=== PATIENT | female | born 1960 | race African-American/Black ===

== ENCOUNTER 2017-01-05 14:07 | Outpatient (CLI) | payer OTHER ==
--- NOTE | 2017-01-06 09:49 | Mammography Report ---
BONE DENSITY STUDY: DEFINITIONS: BMD = Bone Mineral Density T-score = BMD related to mean peak bone mass of young adult (mean expressed in Standard Deviation) Z-score = Age matched BMD expressed in SD World Health Organization (WHO) Diagnostic Criteria Normal T-score > -1 SD Osteopenia T-score between -1 and -2.4 SD Osteoporosis T-score -2.5 SD or below FINDINGS: The weighted average BMD of lumbar spine L1-L4 is 0.63 with a T-score of -3.9. The weighted average BMD of hip is 0.678 with a T-score of -2.2. IMPRESSION: The patient's T-score is diagnostic for osteoporosis and high relative risk for fracture. NOTE: BMD is not the only risk factor for fracture; also consider factors such as the patient's age, risk of falling, previous osteoporotic fracture, family history of osteoporotic fractures, current smoker, and low body weight. Herrera's triangle is a region of interest in femur, predominantly of trabecular bone. It is not a true anatomic site, and [facility] does not recommend its use clinically.
--- NOTE | 2017-01-08 11:17 | Mammography Report ---
Bilateral mammogram and bilateral breast ultrasound: Patient presents with a palpable, painful lump in her right breast. A marker is placed over the area of concern in the superior breast. Routine views were obtained demonstrating a generally dense fibroglandular pattern in a symmetric distribution. In the area of the marker that are seen in the lateral projection there is a partially circumscribed density measuring approximately 2.4 cm. No other focal finding is noted and when compared to her prior examination in August 2012 the overall breast pattern is essentially unchanged although the focal finding on the right is not noted. Bilateral whole breast ultrasound is performed. In the right breast at 12:00 there is a cluster of echolucent masses the largest measuring approximately 20 mm. Other circumscribed echolucent masses are also noted in the 9:00 location. In the subareolar region at 6:00 there is a circumscribed mass however it contains numerous small echoes. It measures approximately 9 mm and has no internal flow. In the left breast there also echolucent circumscribed masses in the 12:00, 1:00, 2:30, 6, and 9:00 locations. No dominant mass is at 9:00 in the retroareolar region measuring 15 mm. CAD used. Impression: 1. The palpable right breast finding corresponds to a cluster of benign appearing cysts. 2. Generally stable breast pattern. 3. Indeterminate but most likely benign subareolar mass on ultrasound. Recommendation: 1. The palpable mass can be aspirated under ultrasound if desired. 2. Ultrasound-guided aspiration or 6 month repeat ultrasound reevaluation of left retroareolar mass. The findings and followup considerations discussed with the patient. 3. Annual mammogram followup. BI-RADS CATEGORY: 3 = Probably benign ACR BI-RADS MAMMOGRAPHIC CODES: 0 = Needs additional imaging evaluation; 1 = Negative; 2 = Benign; 3 = Probably benign; 4 = Suspicious; 5 = Malignant; 6 = Known biopsy-proven malignancy COMMENT: 1. Dense breast tissue, i.e., adenosis, fibrocystic changes, etc., may obscure an underlying neoplasm. 2. Approximately 10% of cancers are not detected with mammography. 3. A negative mammography report should not delay biopsy if a clinically suspicious mass is present.
== END 2017-01-05 14:08 | disposition home or self-care (01) ==
LOC: MAMMO 14:07
PROVIDERS: ATTEND Obstetrics & Gynecology
DX: M81.0 Age-related osteoporosis without current pathological fracture (principal); N63.10 Unspecified lump in the right breast, unspecified quadrant; N95.1 Menopausal and female climacteric states
CPT/HCPCS: 76641; 77080; G0204; 77066

== ENCOUNTER 2017-07-15 08:24 | Outpatient (CLI) | payer OTHER ==
--- NOTE | 2017-07-21 12:51 | Magnetic Resonance Report ---
BILATERAL BREAST MRI WITHOUT AND WITH CONTRAST: 07/15/17 08:24:00 CLINICAL: Mastalgia and fibrocystic change. COMPARISON:01/05/17 bilateral mammogram. TECHNIQUE: Axial 1.0-mm T1 without, axial high resolution 2.0-mm T2 and axial 1.0-mm dynamic Vibrant high-resolution postcontrast T1 fat saturation sequences on a 1.5 Evita magnet. The examination was performed with an 8 channel dedicated [employer]in[employer] breast coil. Post processing with CAD and subtraction was performed on an Amanda Huff DBA [employer] workstation. 15.0 cc of Multihance was injected without incident for the contrast portion of the exam. Consent was obtained prior to the administration of the contrast. FINDINGS: Right: Mild background parenchymal enhancement. No suspicious mass or enhancement. A benign retroareolar intraparenchymal lymph node is located 4.6 cm from the nipple and measures 9.6 x 5.7 x 5.3 mm. It has central fat on T2. A smooth oval upper inner mass located 10.0 cm from the nipple measures 11.3 x 7.2 x 5.8 mm. It demonstrates mild enhancement with 100% type I persistent enhancement. Multiple scattered benign cysts. The largest measures 3 cm and is located at 3 o'clock. No suspicious right axillary or right internal mammary lymph nodes. Left: Mild background parenchymal enhancement. No suspicious mass or enhancement. Several scattered benign cysts. The largest is located in the upper outer quadrant and measures 1.9 x 1.4 x 1.3 cm. It has mild peripheral enhancement at its margin. No suspicious left axillary or left internal mammary lymph nodes. IMPRESSION: 1. Negative study with no suspicious finding in either breast. 2. Bilateral benign cysts. 3. A right upper inner 1.1 cm mass has benign features and is probably a benign fibroadenoma. BI-RADS 2 -- Benign
== END 2017-07-15 08:25 | disposition home or self-care (01) ==
LOC: SPVIMAG 08:24
PROVIDERS: ATTEND Obstetrics & Gynecology
DX: N60.02 Solitary cyst of left breast (principal); N60.01 Solitary cyst of right breast; E78.00 Pure hypercholesterolemia, unspecified; K21.9 Gastro-esophageal reflux disease without esophagitis
CPT/HCPCS: A9577; C8908; 77059

== ENCOUNTER 2017-09-15 15:07 | Outpatient (CLI) | payer OTHER | END 2017-09-15 15:08 | disposition home or self-care (01) | LOC: LABHHL 15:07 | PROVIDERS: ATTEND Specialist | DX: N60.12 Diffuse cystic mastopathy of left breast (principal); F32.9 Major depressive disorder, single episode, unspecified; E78.00 Pure hypercholesterolemia, unspecified; Z88.6 Allergy status to analgesic agent; Z88.1 Allergy status to other antibiotic agents; Z88.8 Allergy status to other drugs, medicaments and biological substances; Z88.2 Allergy status to sulfonamides; Z90.710 Acquired absence of both cervix and uterus | CPT/HCPCS: 88112 ==

== ENCOUNTER 2017-09-22 15:21 | Outpatient (CLI) | payer OTHER | END 2017-09-22 15:22 | disposition home or self-care (01) | LOC: LABHHL 15:21 | PROVIDERS: ATTEND Specialist | DX: N60.01 Solitary cyst of right breast (principal); F32.9 Major depressive disorder, single episode, unspecified; E78.00 Pure hypercholesterolemia, unspecified; Z90.710 Acquired absence of both cervix and uterus; Z88.1 Allergy status to other antibiotic agents; Z88.6 Allergy status to analgesic agent; Z88.8 Allergy status to other drugs, medicaments and biological substances | CPT/HCPCS: 88112 ==

== ENCOUNTER 2017-11-04 13:52 | Outpatient (CLI) | payer OTHER ==
[2017-11-04 15:09] LABS: Basophils % (Auto) 0.5 % (0.0-1.8); Eosinophils # (Auto) 0.1 K/mm3 (0.0-0.4); Eosinophils % (Auto) 1.3 % (0.0-4.3); Hematocrit 44.1 % (30.3-42.9); Hemoglobin 14.5 gm/dl (10.1-14.3); Lymphocytes % (Auto) 33.9 % (13.4-35.0); Mean Corpuscular HGB Conc 33 % (30-34); Mean Corpuscular Hemoglobin 27 pg (28-32); Mean Corpuscular Volume 81 fl (79-97); Monocytes # (Auto) 0.4 K/mm3 (0.0-0.8); Monocytes % (Auto) 6.5 % (0.0-7.3); Platelet Count 361 K/mm3 (140-440); Red Blood Count 5.41 M/mm3 (3.65-5.03); Red Cell Distribution Width 13.8 % (13.2-15.2)
[2017-11-04 15:19] LABS: INR 0.94 (0.87-1.13)
[2017-11-04 15:20] LABS: Partial Thromboplastin Time 31.7 Sec. (24.2-36.6)
--- NOTE | 2017-11-04 16:00 | Short Stay Summary ---
Short Stay Documentation Date of service: 11/04/17 - History Principal diagnosis: neck pain, radiculopathy H&P: obtained from office - Allergies and Medications Current Medications: Allergies acetaminophen [From Percocet] Allergy (Verified 05/22/13 23:44) HALLUCINATIONS celecoxib [From Celebrex] Allergy (Verified 05/22/13 23:44) Rash erythromycin base [Erythromycin Base] Allergy (Verified 05/22/13 23:44) Diarrhea omeprazole Allergy (Verified 05/22/13 23:44) CHEST PAIN oxycodone HCl [From Percocet] Allergy (Verified 05/22/13 23:44) HALLUCINATIONS oxycodone [From Percocet] Adverse Reaction (Unverified 01/05/17 14:12) HALLUCINATIONS Home Medications Medication Instructions Recorded Confirmed Last Taken Type Ibuprofen [Advil] 200 mg PO Q6H PRN 10/19/12 11/04/17 10/21/17 History 200mg Vits/Iron Fum/Folic 1 each PO QDAY 10/19/12 11/04/17 11/03/17 History [M-Vit Caplet] 1 tab Tizanidine HCl [Zanaflex] 4 mg PO HS 10/19/12 11/04/17 11/01/17 History 4mg traMADol [Ultram] 50 mg PO Q6HR PRN #30 tablet 05/23/13 11/04/17 11/03/17 Rx 50mg Nortriptyline HCl 25 mg PO HS 11/04/17 11/04/17 11/02/17 History 25mg - Physical exam General appearance: no acute distress Neurological: Normal gait, Normal speech, Normal tone - Brief post op/procedure progress note Date of procedure: 11/04/17 Pre-op diagnosis: neck pain, radiculopahty Post-op diagnosis: same Procedure: flouro guided CTL myleogram Anesthesia: local Surgeon: ARSALAN RAMSAY Estimated blood loss: none Pathology: none Condition: stable - Disposition Condition at discharge: Good Disposition: DC-01 TO HOME OR SELFCARE Short Stay Discharge Plan Follow up with: ANGELO GAGNON MD [Primary Care Provider] - 7 Days
[2017-11-04 18:26] VITALS: BP 118/60
--- NOTE | 2017-11-08 08:14 | Fluoroscopy Report ---
FLUOROSCOPY MYELOGRAM CERVICAL FLUOROSCOPY MYELOGRAM THORACIC FLUOROSCOPY MYELOGRAM LUMBAR History: Back pain, neck pain, radiculopathy. Description of procedure: Informed consent was obtained. Sterile technique was utilized. 1% lidocaine for skin anesthesia. Using fluoroscopy guidance, lumbar puncture was performed at the L2-3 level. There was spontaneous return of clear CSF. Approximately 12 cc of Omnipaque-300 was administered intrathecally. The contrast agent was free flowing to the cervical region. No high grade stenosis was demonstrated. Please await the formal CT myelogram report for full evaluation. The patient tolerated the procedure without difficulty. Impression: Successful fluoroscopy guided cervical, thoracic and lumbar myelograms.
--- NOTE | 2017-11-09 10:51 | Cat Scan Report ---
CT THORACIC SPINE WITH CONTRAST HISTORY: M47.812, pain, radiculopathy. TECHNIQUE: Helical CT following intrathecal contrast administration. Sagittal and coronal reformatted images. FINDINGS: There is normal height and alignment of the thoracic vertebral bodies. No evidence for fracture, subluxation or bone lesion. The posterior elements are in appropriate relationship. The facet joints are unremarkable. No significant facet arthropathy. The disc spaces appear normal height. There is minor anterior spurring throughout the thoracic spine. No evidence for posterior spurring, bulging disc, central canal narrowing or neural foraminal narrowing. Contrast agent outlines a normal appearing thoracic spinal cord. The spinal canal and neural foramina are within normal limits. No nerve impingement. IMPRESSION: Essentially normal CT myelogram of the thoracic spine. No bulging disc, canal stenosis, significant degenerative changes or neural foraminal narrowing.
--- NOTE | 2017-11-09 15:29 | Cat Scan Report ---
CT CERVICAL SPINE WITH CONTRAST HISTORY: M47.8, pain, radiculopathy TECHNIQUE: Helical CT following intrathecal contrast administration. Sagittal and coronal reformatted images. FINDINGS: Previous anterior fusion at C5-6 generates mild artifact. The hardware appears well applied. There is normal height and alignment of the cervical vertebral bodies. No evidence for fracture, subluxation or bone lesion. The posterior elements are in appropriate relationship. Minimal degenerative disc disease is noted at C4-5 and C6-7. No significant facet arthropathy. The cervical spinal cord is unremarkable on CT myelogram. No central canal stenosis is appreciated. C2-3: No significant abnormality. C3-4: No significant abnormality. C4-5: Mild disc space narrowing is identified. No bulging disc or herniation. No neural foraminal narrowing. C5-6: Surgical fusion. Otherwise, no significant abnormality. C6-7: A small to medium right paracentral disc protrusion is identified which effaces the anterior thecal sac and abuts the anterior surface of the spinal cord. There is no evidence for mass effect or central canal stenosis. The neural foramen are unremarkable. C7-T1: No significant abnormality. IMPRESSION: Stable appearance of the anterior fusion changes at C5-6. Minimal spondylosis. Small to medium right paracentral disc protrusion at C6-7 as outlined above.
--- NOTE | 2017-11-09 15:32 | Cat Scan Report ---
CT LUMBAR SPINE WITH CONTRAST HISTORY: M47.8, pain, radiculopathy TECHNIQUE: Helical CT following intrathecal contrast administration. Sagittal and coronal reformatted images. FINDINGS: The conus terminates at the level of L1-2. No mass. The cauda equina is unremarkable. Normal height and alignment of the lumbar vertebral bodies. No evidence for fracture, subluxation or bone lesion. The disc spaces appear normal height. The posterior elements are in appropriate relationship. Minimal facet arthropathy is noted at L4-5. No hypertrophic changes. L1-2: A moderate right paracentral disc protrusion is identified which effaces the anterior thecal sac. The protrusion abuts a few right cauda equina nerve roots. No central canal stenosis or neural foraminal narrowing. L2-3: No significant abnormality. L3-4: No significant abnormality. L4-5: No significant abnormality. L5-S1: No significant abnormality. IMPRESSION: Moderate right paracentral disc protrusion at L1-2 as outlined above.
== END 2017-11-04 13:53 | disposition home or self-care (01) ==
LOC: CATHLABREC 13:52
PROVIDERS: ATTEND Physical Medicine & Rehabilitation Pain Medicine
DX: M47.812 Spondylosis without myelopathy or radiculopathy, cervical region (principal); M43.22 Fusion of spine, cervical region; M50.223 Other cervical disc displacement at C6-C7 level; M51.26 Other intervertebral disc displacement, lumbar region; M54.6 Pain in thoracic spine; E78.00 Pure hypercholesterolemia, unspecified; K21.9 Gastro-esophageal reflux disease without esophagitis; Z90.710 Acquired absence of both cervix and uterus; Z90.49 Acquired absence of other specified parts of digestive tract
CPT/HCPCS: 36415; 62302; 62304; 72126; 72129; 72132; 85025; 85610; 85730

== ENCOUNTER 2018-03-23 09:45 | Inpatient (IN) | payer OTHER ==
[2018-03-18 10:53] LABS: Basophils % (Auto) 0.7 % (0.0-1.8); Eosinophils # (Auto) 0.1 K/mm3 (0.0-0.4); Eosinophils % (Auto) 2.2 % (0.0-4.3); Hemoglobin 14.2 gm/dl (10.1-14.3); Lymphocytes # (Auto) 2.5 K/mm3 (1.2-5.4); Lymphocytes % (Auto) 47.3 % (13.4-35.0); Mean Corpuscular HGB Conc 33 % (30-34); Mean Corpuscular Volume 82 fl (79-97); Monocytes # (Auto) 0.3 K/mm3 (0.0-0.8); Monocytes % (Auto) 5.5 % (0.0-7.3); Platelet Count 369 K/mm3 (140-440); Red Blood Count 5.24 M/mm3 (3.65-5.03); Red Cell Distribution Width 13.3 % (13.2-15.2)
[2018-03-18 11:05] LABS: BUN/Creatinine Ratio 20; Blood Urea Nitrogen 12 mg/dL (7-17); Calcium 9.2 mg/dL (8.4-10.2); Hemolysis Index 37
--- NOTE | 2018-03-18 11:08 | Anesthesia Consultation ---
Anesthesia Consult and Med Hx Date of service: 03/18/18 - Airway Anesthetic Teeth Evaluation: Good ROM Head & Neck: Adequate Mental/Hyoid Distance: Adequate Mallampati Class: Class II Intubation Access Assessment: Probably Good - Pulmonary Exam CTA: Yes - Cardiac Exam Cardiac Exam: RRR - Pre-Operative Health Status ASA Pre-Surgery Classification: ASA2 Proposed Anesthetic Plan: General Nerve Block: pectoral - Pulmonary Hx Smoking: No Hx Asthma: No Hx Respiratory Symptoms: No SOB: Yes (obtaining EKG, CXR) COPD: No Hx Pneumonia: No Hx Sleep Apnea: No (ELVIS PRE SCREEN NEGATIVE) - Cardiovascular System Hx Hypertension: No Hx Coronary Artery Disease: No Hx Heart Attack/AMI: No Hx Angina: No Hx Percutaneous Transluminal Coronary Angioplasty (PTCA): No Hx Cardia Arrhythmia: Yes (occasional palpitations; preop EKG NSR) Hx Pacemaker: No Hx Internal Defibrillator: No Hx Heart Murmur: Yes Hx Peripheral Vascular Disease: No - Central Nervous System Hx Neuromuscular Disorder: No Hx Seizures: No CVA: No Hx Back Pain: Yes (NECK PAIN) Hx Psychiatric Problems: Yes (depression) - Gastrointestinal Hx Ulcer: No Hx Gastroesophageal Reflux Disease: Yes (well controlled) - Endocrine Hx Renal Disease: No Hx Cirrhosis: No Hx Liver Disease: No Hx Insulin Dependent Diabetes: No Hx Non-Insulin Dependent Diabetes: No Hx Thyroid Disease: No Hx Hypothyroidism: No Hx Hyperthyroidism: No - Hematic Hx Anemia: No Hx Sickle Cell Disease: No - Other Systems Hx Alcohol Use: No Hx Substance Use: No Hx Cancer: No Hx Obesity: No
--- NOTE | 2018-03-18 12:14 | XRay Report ---
ROUTINE CHEST, TWO VIEWS: HISTORY: Shortness of breath, preoperative evaluation. The trachea, heart, mediastinal contour, lung charlton and bony thorax are unremarkable. IMPRESSION: Unremarkable chest x-ray.
[~2018-03-23 09:45] MED LIST: ANCEF/STERILE WATER 2 GM/20 ML IV NR; SUBLIMAZE IV PRN; ZOFRAN IV PRN
[2018-03-23] MEDS ORDERED: METHYLENE BLUE ONE (10:49)
[2018-03-23] MEDS ORDERED: SUBLIMAZE ONE ×2 (11:32→14:52)
[2018-03-23] MEDS ORDERED: XYLOCAINE CARDIAC IV ONE (11:32)
[2018-03-23] MEDS ORDERED: ZOFRAN ONE (11:32)
[2018-03-23] MEDS ORDERED: DIPRIVAN 10 MG/ML IV ONE (11:32)
--- NOTE | 2018-03-23 11:33 | Anesthesia Consultation ---
Anesthesia Consult and Med Hx Date of service: 03/23/18 - Airway Anesthetic Teeth Evaluation: Good ROM Head & Neck: Adequate Mental/Hyoid Distance: Adequate Mallampati Class: Class I Intubation Access Assessment: Good - Pre-Operative Health Status ASA Pre-Surgery Classification: ASA2 Proposed Anesthetic Plan: General - Pulmonary Hx Smoking: No Hx Asthma: No Hx Respiratory Symptoms: Yes (VARGAS; Saw rehabilitation services aide. Echo) SOB: Yes (obtaining EKG, CXR) COPD: No Hx Pneumonia: No Hx Sleep Apnea: No (ELVIS PRE SCREEN NEGATIVE) - Cardiovascular System Hx Hypertension: No Hx Coronary Artery Disease: No Hx Heart Attack/AMI: No Hx Angina: No Hx Percutaneous Transluminal Coronary Angioplasty (PTCA): No Hx Cardia Arrhythmia: Yes (occasional palpitations; preop EKG NSR) Hx Pacemaker: No Hx Internal Defibrillator: No Hx Heart Murmur: Yes Hx Peripheral Vascular Disease: No - Central Nervous System Hx Neuromuscular Disorder: No Hx Seizures: No CVA: No Hx Back Pain: Yes (NECK PAIN) Hx Psychiatric Problems: Yes (depression) - Gastrointestinal Hx Ulcer: No Hx Gastroesophageal Reflux Disease: Yes (well controlled) - Endocrine Hx Renal Disease: No Hx Cirrhosis: No Hx Liver Disease: No Hx Insulin Dependent Diabetes: No Hx Non-Insulin Dependent Diabetes: No Hx Thyroid Disease: No Hx Hypothyroidism: No Hx Hyperthyroidism: No - Hematic Hx Anemia: No Hx Sickle Cell Disease: No - Other Systems Hx Alcohol Use: No Hx Substance Use: No Hx Cancer: No Hx Obesity: No
--- NOTE | 2018-03-23 11:33 | Anesthesia Day of Surgery ---
Anesthesia Day of Surgery - Day of Surgery Patient Examined: Yes Patient H&P Reviewed: Yes Patient is NPO: Yes Cardiac Clearance: Yes
[2018-03-23] MEDS: LACTATED RINGERS 1,000 ML IV SCH ×2 (11:40→19:34)
[2018-03-23] MEDS ORDERED: TRANSDERM-SCOP TD NR (12:00)
--- NOTE | 2018-03-23 12:06 | Operative Report ---
Operative Report Operative Report: PREOPERATIVE DIAGNOSIS: LEFT Breast Cancer POSTOPERATIVE DIAGNOSIS: RIGHT Breast Cancer PROCEDURE: 1. LEFT breast reconstruction using tissue transaction advisory services manager in the PRE pectoral position, CPT code 19872-67 2. LEFT breast reconstruction using biological mesh, FlexHD, CPT code 70266-14 3. Application of YESENIA negative pressure wound vac device to bilateral breasts for postoperative wound healing, CPT code 94392 SURGEON: Mason Joiner MD ONLINE MARKETING ANALYST: none ANESTHESIA: General OPERATIVE INDICATIONS: This is a 57 year old female with a history of LEFT sided breast cancer (phylodes tumor), was referred to me by DR. DILLON for breast reconstruction. The patient was planning on undergoing LEFT mastectomy and desired reconstruction. A discussion was held with the patient regarding the different surgical options including: immediate vs delayed reconstruction, au tologous vs implant based reconstruction as well as the risks and benefits of all options. Plan was to move forward with LEFT breast recon with transaction advisory services manager. OPERATIVE DETAILS: After informed consent was obtained, patient was brought to the operating room and placed on the operating room table. Preoperative antibiotics and general anesthesia were administered. The patient was prepped and draped in the usual sterile fashion and a timeout called to verify the correct patient and procedure. began her portion of the operation which will be dictated separately. I entered the room and assessed the defect and began my reconstruction. I began by measuring the base width and then choosing the appropriate sized transaction advisory services manager after examining the defect. I then created a composite implant using the tissue transaction advisory services manager and biologic mesh with a wrap in order to cover the implant and provide a pocket while in the PRE-PECTORAL space. This was done on the back table. We used MENTOR ARTUORA EXPANDERS, Ultra High profile smooth 700cc, and wrapped with FlexHD 13 x 22 mesh x 2 pieces FRONT OFFICE REPRESENTATIVE SERIAL NUMBER: [id number] FLEXHD SERIAL NUMBER: [id number], [id number] The transaction advisory services manager was completely deflated and then inflated with methylene blue tinted saline to a volume of 300cc. The fully wrapped implant was soaked in betadine and triple antibiotic irrigation. I then placed the composite implant on the pectoralis muscle and situated it in the correct position and then anchored it using the suture tabs and spanning sutures. Everything was irrigated again and hemostasis achieved. A 19French and 15 Bulgarian round channel drain was placed for postop drainage. The skin was then closed with 3-0 monocryl deep dermals and then a 2-0 monocryl barbed suture in a subcuticular pattern. A YESENIA negative pressure wound vac device was used for coverage of the incisions to prevent postoperative wound healing complications. The patient tolerated the procedure well and was moved to the PACU in stable condition. ESTIMATED BLOOD LOSS: less than 50ml COMPLICATIONS: none
[2018-03-23] MEDS ORDERED: METHYLENE BLUE IRRIGATION ONE (13:00)
[2018-03-23] MEDS ORDERED: GENTAMICIN IV ONE (13:00)
[2018-03-23] MEDS ORDERED: NACL 0.9% IR ONE (13:00)
[2018-03-23] MEDS ORDERED: VERSED IV NR (13:00)
[2018-03-23] MEDS ORDERED: BACITRACIN IR ONE (13:00)
[2018-03-23] MEDS ORDERED: NEURONTIN PO NR (13:00)
[2018-03-23] MEDS ORDERED: NACL 0.9% 500 ML IRRIGATION ONE (13:00)
[2018-03-23] MEDS ORDERED: NACL 0.9% 1000 ML IR ONE (13:00)
[2018-03-23] MEDS ORDERED: REGLAN PO PRN (14:00)
[2018-03-23] MEDS ORDERED: BENADRYL PO PRN (14:00)
[2018-03-23] MEDS ORDERED: TYLENOL PO PRN (14:00)
[2018-03-23] MEDS ORDERED: ZOFRAN IV PRN (14:00)
[2018-03-23] MEDS ORDERED: SODIUM CHLORIDE FLUSH SYRINGE 10 ML IV PRN (14:00)
[2018-03-23] MEDS ORDERED: LACTATED RINGERS 1,000 ML IV SCH (14:00)
--- NOTE | 2018-03-23 14:06 | Short Stay Summary ---
Short Stay Documentation Date of service: 03/23/18 - History H&P: obtained from office - Allergies and Medications Current Medications: Allergies celecoxib [From Celebrex] Allergy (Verified 03/18/18 14:48) Rash erythromycin base [Erythromycin Base] Allergy (Verified 03/18/18 14:48) Diarrhea omeprazole Allergy (Verified 03/18/18 14:48) CHEST PAIN oxycodone HCl [From Percocet] Allergy (Verified 03/18/18 14:48) HALLUCINATIONS oxycodone [From Percocet] Adverse Reaction (Verified 03/18/18 14:48) HALLUCINATIONS Home Medications Medication Instructions Recorded Confirmed Last Taken Type Ibuprofen [Advil] 200 mg PO Q6H PRN 10/19/12 03/18/18 01/26/18 History Tizanidine HCl [Zanaflex] 4 mg PO HS 10/19/12 03/18/18 02/01/18 History Nortriptyline HCl 25 mg PO HS 11/04/17 03/18/18 02/01/18 History Acetaminophen [Tylenol] 325 mg PO Q4H PRN 01/31/18 03/18/18 02/01/18 History Calcium Carbonate [Calcium] 500 mg PO DAILY 01/31/18 03/18/18 02/01/18 History Cholecalciferol (Vitamin D3) 1 cap PO QWEEK 01/31/18 03/18/18 02/01/18 History [Vitamin D3] Cyanocobalamin (Vitamin B-12) 2,500 mcg PO DAILY 01/31/18 03/18/18 02/01/18 History [Vitamin B12] traMADol [Ultram] 50 mg PO BID 01/31/18 03/18/18 02/01/18 History Ibuprofen 800 mg PO Q8HR PRN #30 tablet 02/02/18 03/18/18 Unknown Rx Active Medications Acetaminophen (Tylenol) 650 mg PO Q6H PRN PRN Reason: Pain MILD(1-3)/Fever >100.5/KELLOGG Cefazolin Sodium (Ancef/Sterile Water 2 Gm/20 Ml) 2 gm IV PREOP NR Stop: 03/23/18 23:00 Diphenhydramine HCl (Benadryl) 25 mg PO Q8H PRN PRN Reason: Itching Docusate Sodium (Colace) 100 mg PO BID FRANC Fentanyl (Sublimaze) 50 mcg IV Q5MIN PRN PRN Reason: Pain , Severe (7-10) Stop: 03/23/18 20:00 Gabapentin (Neurontin) 300 mg PO PREOP NR Stop: 03/23/18 23:59 Hydromorphone HCl (Dilaudid) 2 mg PO Q6H PRN PRN Reason: Pain , Severe (7-10) Lactated Ringer's (Lactated Ringers) 1,000 mls @ 75 mls/hr IV DIRECT FRANC Last Admin: 03/23/18 11:40 Dose: 75 mls/hr Documented by: Lactated Ringer's (Lactated Ringers) 1,000 mls @ 125 mls/hr IV DIRECT FRANC Metoclopramide HCl (Reglan) 10 mg PO Q6H PRN PRN Reason: Nausea And Vomiting Midazolam HCl (Versed) 2 mg IV PREOP NR Stop: 03/23/18 23:59 Morphine Sulfate (Morphine) 2 mg IV Q4H PRN PRN Reason: Pain, Moderate (4-6) Ondansetron HCl (Zofran) 4 mg IV Q8H PRN PRN Reason: N/V unrelieved by Reglan Scopolamine (Transderm-Scop) 1 each TD PREOP NR Stop: 03/23/18 23:59 Last Admin: 03/23/18 12:37 Dose: 1 each Documented by: Sodium Chloride (Sodium Chloride Flush Syringe 10 Ml) 10 ml IV PRN PRN PRN Reason: LINE FLUSH - Brief post op/procedure progress note Date of procedure: 03/23/18 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
--- NOTE | 2018-03-23 14:09 | Operative Report ---
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 Anesthesia: Gen. 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 She recently underwent left partial mastectomy with findings of malignant phyllodes tumor with close margins less than 1 cm and recommendations for mastectomy given patient with prior history of 2 surgeries for phyllodes tumorin 2009 and 2013. She wished to proceed with the above procedure as well as immediate tissue tank washer placement. Procedure in detail: Anesthesia placed let pectoral muscle block prior to going to the operating room. The patient was taken to the operating room and was placed supine. Gen. anesthesia was administered. The left chest and axilla was prepped and draped in the normal sterile operative fashion. Timeout was performed. Typical mastectomy incision marking was made that included recent incision of the upper outer quadrant. A skin incision was made with a 10 blade knife and dissection taken down to the subcutaneous tissues. First began raising of the superior flap to the level of the clavicle superiorly and posteriorly to the pectoralis muscle. Followed by raising of the medial flap to the level of the sternum and posteriorly to the pectoralis muscle. Followed by raising of the lateral flap to the level of the latissimus dorsi muscle and taken down posteriorly. Then proceeded with raising of the inferior flap to the level of the inframammary fold taken posterior to the pectoralis muscle. The mastectomy/breast was removed from the pectoralis muscle without incident. The specimen was appropriately marked and sent to pathology. Hemostasis was noted. The chest wall was irrigated and suctioned. Hemostasis was obtained and plastic surgery then proceeded with tissue tank washer placement. She tolerated surgery very well.
[2018-03-23] MEDS ORDERED: DILAUDID ONE (14:55)
[2018-03-23] MEDS: DILAUDID IV PRN ×4 (15:43→16:32)
[2018-03-23] MEDS: DILAUDID PO PRN (17:45)
[2018-03-23] MEDS: MORPHINE IV PRN ×2 (18:40→22:26)
[2018-03-23] MEDS: COLACE PO SCH (21:55)
[2018-03-24] MEDS: DILAUDID PO PRN ×2 (01:29→09:46)
--- NOTE | 2018-03-24 08:18 | Progress Note ---
Assessment and Plan This is a 57 year old lady with malignant left breast phyllodes POD#1 left total mastectomy. 1. No acute events overnight. 2. Pain in good control. 3. Left chest PICCO in place and EKATERINA drains to bulb suction. 4. OOB to hallway. 5. D/C planning for today. Subjective Date of service: 03/24/18 Principal diagnosis: Left breast malignancy phyllodes Interval history: POD#1 left total mastectomy Objective - Constitutional Vitals: Vital Signs - 12hr 03/23/18 03/23/18 03/24/18 20:55 22:26 00:22 Temperature 98.2 F 98.0 F Pulse Rate 63 70 Respiratory 18 20 18 Rate Blood Pressure 106/51 Blood Pressure 117/48 [Right] O2 Sat by Pulse 98 97 Oximetry 03/24/18 03/24/18 03/24/18 01:29 02:29 04:52 Temperature 98.0 F Pulse Rate 61 Respiratory 20 18 18 Rate Blood Pressure 93/36 Blood Pressure [Right] O2 Sat by Pulse 96 Oximetry General appearance: Present: no acute distress - EENT Eyes: PERRL, EOM intact ENT: hearing intact, clear oral mucosa, dentition normal Ears: bilateral: normal - Neck Neck: supple, normal ROM - Respiratory Respiratory effort: normal Respiratory: bilateral: CTA - Breasts Breasts: other (left PICCO in place to suction, EKATERINA drains to bulb suction) - Cardiovascular Rhythm: regular Extremities: no ischemia, pulses intact, pulses symmetrical, No edema, normal temperature, normal color, Full ROM - Gastrointestinal General gastrointestinal: Present: soft, non-tender, non-distended Rectal Exam: deferred - Genitourinary Female genitourinary: deferred - Integumentary Integumentary: clear, warm, dry - Musculoskeletal Musculoskeletal: strength equal bilaterally - Neurologic Neurologic: CNII-XII intact, moves all extremities - Psychiatric Psychiatric: appropriate mood/affect, intact judgment & insight, memory intact, cooperative - Labs CBC & Chem 7: 03/18/18 10:30 03/18/18 10:30 Medications & Allergies - Medications Allergies/Adverse Reactions: Allergies celecoxib [From Celebrex] Allergy (Verified 03/18/18 14:48) Rash erythromycin base [Erythromycin Base] Allergy (Verified 03/18/18 14:48) Diarrhea omeprazole Allergy (Verified 03/18/18 14:48) CHEST PAIN oxycodone HCl [From Percocet] Allergy (Verified 03/18/18 14:48) HALLUCINATIONS oxycodone [From Percocet] Adverse Reaction (Verified 03/18/18 14:48) HALLUCINATIONS Home Medications: Home Medications Medication Instructions Recorded Confirmed Last Taken Type Ibuprofen [Advil] 200 mg PO Q6H PRN 10/19/12 03/18/18 01/26/18 History Tizanidine HCl [Zanaflex] 4 mg PO HS 10/19/12 03/18/18 02/01/18 History Nortriptyline HCl 25 mg PO HS 11/04/17 03/18/18 02/01/18 History Acetaminophen [Tylenol] 325 mg PO Q4H PRN 01/31/18 03/18/18 02/01/18 History Calcium Carbonate [Calcium] 500 mg PO DAILY 01/31/18 03/18/18 02/01/18 History Cholecalciferol (Vitamin D3) 1 cap PO QWEEK 01/31/18 03/18/18 02/01/18 History [Vitamin D3] Cyanocobalamin (Vitamin B-12) 2,500 mcg PO DAILY 01/31/18 03/18/18 02/01/18 History [Vitamin B12] traMADol [Ultram] 50 mg PO BID 01/31/18 03/18/18 02/01/18 History Ibuprofen 800 mg PO Q8HR PRN #30 tablet 02/02/18 03/18/18 Unknown Rx Famotidine [Pepcid] 20 mg PO BID PRN #30 tablet 03/24/18 Unknown Rx HYDROmorphone [Dilaudid] 2 mg PO Q4HR PRN #25 tablet 03/24/18 Unknown Rx Ondansetron (Nf) [Zofran TAB] 8 mg PO Q8HR PRN #10 tablet 03/24/18 Unknown Rx Active Medications: Generic Name Dose Route Start Last Admin Trade Name Freq PRN Reason Stop Dose Admin Acetaminophen 650 mg 03/23/18 14:00 Tylenol PO Q6H PRN Pain MILD(1-3)/Fever >100.5/KELLOGG Diphenhydramine HCl 25 mg 03/23/18 14:00 Benadryl PO Q8H PRN Itching Docusate Sodium 100 mg 03/23/18 14:00 03/23/18 21:55 Colace PO Not Given BID FRANC Hydromorphone HCl 2 mg 03/23/18 14:00 03/24/18 01:29 Dilaudid PO 2 mg Q6H PRN Administration Pain , Severe (7-10) Hydromorphone HCl 0.5 mg 03/23/18 15:38 03/23/18 16:32 Dilaudid IV 0.5 mg Q10MIN PRN Administration Pain , Severe (7-10) Lactated Ringer's 1,000 mls @ 75 mls/hr 03/23/18 12:00 03/23/18 19:34 Lactated Ringers IV 75 mls/hr DIRECT FRANC Administration Metoclopramide HCl 10 mg 03/23/18 14:00 Reglan PO Q6H PRN Nausea And Vomiting Morphine Sulfate 2 mg 03/23/18 14:03 03/23/18 22:26 Morphine IV 2 mg Q4H PRN Administration Pain, Moderate (4-6) Ondansetron HCl 4 mg 03/23/18 14:00 Zofran IV Q8H PRN N/V unrelieved by Reglan Sodium Chloride 10 ml 03/23/18 14:00 Sodium Chloride Flush Syringe 10 Ml IV PRN PRN LINE FLUSH
[2018-03-24] MEDS: COLACE PO SCH (09:46)
[2018-03-24] MEDS: MORPHINE IV PRN (11:03)
[2018-03-24 14:39] VITALS: BP 103/48
== END 2018-03-24 14:00 | disposition home or self-care (01) | DRG 583 ==
LOC: OR 09:45 → OB 14:00
PROVIDERS: ADMIT Surgery; ATTEND Surgery
PROC: 0HTU0ZZ Resection of Left Breast, Open Approach (ICD-10-PCS; principal; 2018-03-23)
PROC: 0HHU0NZ Insertion of Tissue Expander into Left Breast, Open Approach (ICD-10-PCS; 2018-03-23)
PROC: 3E0T3BZ Introduction of Anesthetic Agent into Peripheral Nerves and Plexi, Percutaneous Approach (ICD-10-PCS; 2018-03-23)
DX: C50.412 Malignant neoplasm of upper-outer quadrant of left female breast (principal); C50.911 Malignant neoplasm of unspecified site of right female breast; F32.9 Major depressive disorder, single episode, unspecified; K21.9 Gastro-esophageal reflux disease without esophagitis; Z90.710 Acquired absence of both cervix and uterus; Z90.49 Acquired absence of other specified parts of digestive tract
CPT/HCPCS: 36415; 64450; 71046; 80048; 85025; 88307; 88309; 88341; 88342; 93005; 93010; G0378; C1789; J0690; J1170; J1580; J2001; J2270; J2405; J2704; J3010; J7030; J7040; J7120; Q4128; Q9968

== ENCOUNTER 2018-08-12 09:43 | Outpatient (CLI) | payer MEDICARE ==
[2018-08-12 10:54] LABS: Blood Urea Nitrogen 10 mg/dL (7-17)
--- NOTE | 2018-08-12 12:08 | Cat Scan Report ---
CT CHEST WITH CONTRAST: HISTORY: Malignant neoplasm of upper outer quadrant of left female breast. COMPARISON: No relevant comparison. TECHNIQUE: Helical CT in 1.25mm intervals following IV contrast. Sagittal and coronal reformatted images. FINDINGS: Thyroid gland: Normal. Tracheobronchial tree: Normal. Esophagus: Normal. Heart: Normal. Pericardium: Normal. Mediastinum: Normal. No mediastinal mass or adenopathy. Lung Moore: Normal. No pulmonary mass, nodule or infiltrate. Pleural Spaces: Normal. Musculoskeletal: Intact. No suspicious bony lesion is identified. 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 No axillary adenopathy. IMPRESSION: No evidence for recurrent or metastatic disease in the chest.
== END 2018-08-12 09:44 | disposition home or self-care (01) ==
LOC: CT 09:43
PROVIDERS: ATTEND Internal Medicine Hematology & Oncology
DX: C50.412 Malignant neoplasm of upper-outer quadrant of left female breast (principal)
CPT/HCPCS: 36415; 71260; 82565; 84520; Q9967

== ENCOUNTER 2018-12-07 10:14 | Day surgery (SDC) | payer MEDICARE ==
[~2018-12-07 10:14] MED LIST changes: +ADRENALINE P/F ONE; +ANCEF ONE; -ANCEF/STERILE WATER 2 GM/20 ML IV NR; +BACITRACIN IR ONE; +BACITRACIN ONE; +GENTAMICIN ONE; +LACTATED RINGERS 1,000 ML ONE; +MARCAINE 0.5% INFILTRATI ONE; +NACL P/F VIAL (10 ML) 30 ML ONE; -SUBLIMAZE IV PRN; +XYLOCAINE 2% INFILTRATI ONE; -ZOFRAN IV PRN
[2018-12-07] MEDS ORDERED: VERSED IV ONE (10:50)
[2018-12-07] MEDS ORDERED: ZOFRAN IV NR (11:00)
[2018-12-07] MEDS ORDERED: LACTATED RINGERS 1,000 ML IV SCH (11:00)
[2018-12-07] MEDS ORDERED: PEPCID IV ONE (11:16)
[2018-12-07] MEDS ORDERED: PEPCID IV NR (12:00)
[2018-12-07] MEDS ORDERED: TRANSDERM-SCOP TD NR (12:00)
--- NOTE | 2018-12-07 12:00 | Anesthesia Consultation ---
Anesthesia Consult and Med Hx Date of service: 12/07/18 - Airway Anesthetic Teeth Evaluation: Good ROM Head & Neck: Inadequate (mildly restricted extension 2/2 cervical fusion) Mental/Hyoid Distance: Adequate Mallampati Class: Class III Intubation Access Assessment: Possibly Difficult (previous easy LMA 3) - Pulmonary Exam CTA: Yes - Cardiac Exam Cardiac Exam: RRR - Pre-Operative Health Status ASA Pre-Surgery Classification: ASA3 Proposed Anesthetic Plan: General - Pulmonary Hx Smoking: No - Cardiovascular System Hx Hypertension: No Hx Heart Attack/AMI: No (normal TTE 02/2018; EKG 02/2018 sinus almaz) Hx Cardia Arrhythmia: Yes (neg cardiac workup for hx palpitations) Hx Valvular Heart Disease: Yes (hx MVP not noted on recent TTE) - Central Nervous System CVA: No Hx Back Pain: Yes (CERVICAL; SI JOINT) Hx Psychiatric Problems: Yes - Gastrointestinal Hx Ulcer: No Hx Gastroesophageal Reflux Disease: Yes (well controlled) - Endocrine Hx Renal Disease: No Hx Liver Disease: No Hx Non-Insulin Dependent Diabetes: Yes (A1c >6 most recent labs; currently diet controlled) Hx Thyroid Disease: No - Hematic Hx Anemia: No - Other Systems Hx Cancer: Yes (hx breast Ca) Hx Obesity: No - Additional Comments Anesthesia Medical History Comments: Hx PONV w/ most recent anesthetic.
--- NOTE | 2018-12-07 12:00 | Anesthesia Day of Surgery ---
Anesthesia Day of Surgery - Day of Surgery Patient Examined: Yes Patient H&P Reviewed: Yes Patient is NPO: Yes
[2018-12-07] MEDS ORDERED: BACITRACIN ONE (12:35)
[2018-12-07] MEDS ORDERED: NACL P/F VIAL (10 ML) 10 ML ONE (12:36)
[2018-12-07] MEDS ORDERED: DIPRIVAN 10 MG/ML IV ONE (12:47)
[2018-12-07] MEDS ORDERED: XYLOCAINE MPF 2% ONE (12:47)
[2018-12-07] MEDS ORDERED: SUBLIMAZE ONE (12:47)
--- NOTE | 2018-12-07 12:58 | Post Operative Note ---
Pre-op diagnosis: history of breast cancer Post-op diagnosis: same Findings: intact project management instructor Procedure: exchange left project management instructor for implant, fat transfer Anesthesia: GETA Surgeon: FARIDA MILLER Estimated blood loss: minimal Pathology: none Condition: stable Disposition: PACU
[2018-12-07] MEDS ORDERED: ANCEF/STERILE WATER 2 GM/20 ML IV NR (13:00)
[2018-12-07] MEDS ORDERED: VERSED ONE (13:06)
[2018-12-07] MEDS ORDERED: DECADRON ONE (13:15)
[2018-12-07] MEDS ORDERED: REGLAN ONE (13:15)
[2018-12-07] MEDS ORDERED: DILAUDID ONE (13:42)
[2018-12-07] MEDS ORDERED: NACL 0.9% 100 ML ONE (14:06)
[2018-12-07] MEDS ORDERED: LACTATED RINGERS 1,000 ML ONE (14:07)
[2018-12-07] MEDS: DILAUDID IV PRN ×3 (14:45→15:10)
[2018-12-07] MEDS ORDERED: DEMEROL ONE (14:58)
[2018-12-07 15:54] VITALS: BP 120/52
--- NOTE | 2018-12-07 21:11 | Operative Report ---
PREOPERATIVE DIAGNOSIS: History of left breast cancer. POSTOPERATIVE DIAGNOSIS: History of left breast cancer. PROCEDURE: 1. Left microeconomics professor to silicone breast implant exchange. 2. Left breast reconstruction with other technique, subcision of scar tissue and fat transfer to the breast. 3. Harvesting of fat from the abdominal area for breast reconstruction. SURGEON: Dr. Mason Joiner. ENROLLMENT REPRESENTATIVE: None. ANESTHESIA: General. OPERATIVE INDICATIONS: This is a 58-year-old female with a history of left-sided breast cancer and undergone left-sided mastectomy and tissue microeconomics professor reconstruction. She now presented for microeconomics professor to implant exchange and reconstruction using fat transfer as well. Risks and benefits of surgery discussed with the patient. She agreed. OPERATIVE DETAILS: With informed consent obtained, the patient was brought to the operating room and placed supine on the operating table. Preoperative antibiotics and general anesthesia were administered. The patient was prepped and draped in usual sterile fashion. Timeout was called verifying inpatient operation being performed, side and site of the operation. We began by infiltrating the lower abdomen through a small stab incision in the umbilicus with tumescent fluid. I waited 7-10 minutes for epinephrine to take effect. We then performed some mild liposuction of the lower abdomen using the lipografter harvesting system, fat was harvested into 200 mL bag. We then allowed that to settle by gravity and allowed the additional fluid to settle off. We then saved that fat for the end of the case for the fat transfer. We then turned our attention to the breast. We made an inframammary incision to come from below. I made it slightly below the inframammary crease with the plan to lower the inframammary fold about 1 cm. Dissection was carried up into the breast pocket until the capsule was encountered. We then created flaps above and below the capsule, incised the capsule and encountered the microeconomics professor. We then perforated the microeconomics professor and drained it, so that we could remove it. We inspected the pocket. I then went ahead and performed a capsulotomy of the lower capsule in order to drop the inframammary fold about 1-[address], so the implant would settle down a little bit lower and more symmetrical with the other side. Once that was done, we achieved hemostasis, we irrigated out the pocket. I placed a temporary silicone sizer to determine what size and then we went ahead and opened up a permanent implant. We used a [place] MemoryGel, smooth high profile extra 790 mL implant, serial #[id number]. We placed that into the left breast pocket using a Richards funnel and a no-touch technique and after irrigating with Betadine and triple antibiotic irrigation, we then closed the capsule with 2-0 Vicryl [id number] interrupted sutures. The implant sat in there nicely. I made a small stab incision in the upper pole of the breast and then using the lipografter system, we infiltrated the fat into the upper pole, medial pole and then somewhat laterally into the axilla as she was having some lymphedema symptoms to try to help with some of the improved blood flow in that area with fat transfer. About 110 mL of fat was reinjected. Once that was done, there was an additional dog ear from her previous mastectomy incision laterally in the axilla that was bothering her. We went ahead and fully excised it. It was about 2 cm in length full thickness excision of skin. We then sewed that, closed with 3-0 Monocryl deep dermal, 3-0 Monocryl running subcuticular. The inframammary incision was then closed with 2-0 Vicryl to reapproximate Colten's layer, 3-0 Monocryl deep dermals and a 3-0 Monocryl barbed suture running subcuticular. Dermabond was applied to all the incisions. Sponge and instrument counts were correct. The patient tolerated the procedure well, was awakened from general anesthesia, transferred to PACU in stable condition. ESTIMATED BLOOD LOSS: Minimal. COMPLICATIONS: None. SPECIMENS REMOVED: Left tissue microeconomics professor intact. JOB# [id number] HILARY/ALE
== END 2018-12-07 10:15 | disposition home or self-care (01) ==
LOC: OR 10:14
PROVIDERS: ATTEND Plastic Surgery
DX: Z42.1 Encounter for breast reconstruction following mastectomy (principal); G43.909 Migraine, unspecified, not intractable, without status migrainosus; I42.9 Cardiomyopathy, unspecified; K21.9 Gastro-esophageal reflux disease without esophagitis; E11.649 Type 2 diabetes mellitus with hypoglycemia without coma; F32.9 Major depressive disorder, single episode, unspecified; Z90.49 Acquired absence of other specified parts of digestive tract; Z85.3 Personal history of malignant neoplasm of breast; Z98.890 Other specified postprocedural states; Z90.710 Acquired absence of both cervix and uterus; Z90.12 Acquired absence of left breast and nipple; Z80.1 Family history of malignant neoplasm of trachea, bronchus and lung; Z80.3 Family history of malignant neoplasm of breast; Z91.81 History of falling; Z88.8 Allergy status to other drugs, medicaments and biological substances
CPT/HCPCS: 19342; 19380; 20926; 82962; C1789; J0171; J0690; J1100; J1170; J1580; J2175; J2250; J2405; J2704; J2765; J3010; J7120

== ENCOUNTER 2020-01-30 14:09 | Outpatient (CLI) | payer MEDICARE ==
--- NOTE | 2020-01-30 15:30 | Mammography Report ---
DIGITAL SCREENING MAMMOGRAM WITH CAD, 01/30/2020 CLINICAL INFORMATION / INDICATION: Routine screening mammography. PERSONAL HX OF BREAST CA TECHNIQUE: Digital right 2D mammography was obtained in the craniocaudal and mediolateral oblique pr ojections. This examination was interpreted with the benefit of Computer-Aided Detection analysis. COMPARISON: 01/05/2017 through 01/25/2019. FINDINGS: Breast Density: The breasts are extremely dense, which lowers the sensitivity of mammography. No dominant mass, suspicious calcifications, or architectural distortion in the right breast. Benign-appearing nodularity has not changed significantly. No new abnormality is seen. IMPRESSION: No mammographic evidence of malignancy. Follow up recommendation: Routine yearly BI-RADS Category 2: Benign. A "normal" or negative report should not discourage follow up or biopsy of a clinically significant f inding. A written summary of these findings will be mailed to the patient. The patient will be entered into a mammography reporting system which will generate a reminder letter for the patient's next appointmen t at the appropriate interval. The [employer] recommends yearly mammograms starting at age 40 and continuing as l justo as a woman is in good health. Breast MRI is recommended for women with an approximate 20-25% or greater lifetime risk of breast cancer, including women with a strong family history of breast or ova glen cancer or who have been treated for Hodgkin's disease. Signer Name: Joon Jaramillo MD Signed: 01/30/2020 3:25 PM Workstation Name: [id number]
== END 2020-01-30 14:10 | disposition home or self-care (01) ==
LOC: SPVWC 14:09
PROVIDERS: ATTEND Surgery
DX: R92.8 Other abnormal and inconclusive findings on diagnostic imaging of breast (principal); Z85.3 Personal history of malignant neoplasm of breast

== ENCOUNTER 2021-01-30 09:51 | Outpatient (CLI) | payer MEDICARE ==
--- NOTE | 2021-01-31 17:45 | Mammography Report ---
DIGITAL SCREENING MAMMOGRAM WITH CAD, 01/30/2021 CLINICAL INFORMATION / INDICATION: Routine screening mammography. TECHNIQUE: Digital right 2D mammography was obtained in the craniocaudal and mediolateral oblique pr ojections. This examination was interpreted with the benefit of Computer-Aided Detection analysis. COMPARISON: 01/25/2019 FINDINGS: Breast Density: The breasts are heterogeneously dense, which may obscure small masses. No dominant mass, suspicious calcifications, or architectural distortion in the right breast. No interval change. IMPRESSION: No mammographic evidence of malignancy. Follow up recommendation: Routine yearly BI-RADS Category 1: Negative. A "normal" or negative report should not discourage follow up or biopsy of a clinically significant f inding. A written summary of these findings will be mailed to the patient. The patient will be entered into a mammography reporting system which will generate a reminder letter for the patient's next appointmen t at the appropriate interval. The [employer] recommends yearly mammograms starting at age 40 and continuing as l justo as a woman is in good health. Breast MRI is recommended for women with an approximate 20-25% or greater lifetime risk of breast cancer, including women with a strong family history of breast or ova glen cancer or who have been treated for Hodgkin's disease. Signer Name: Virgen Phillips MD Signed: 01/31/2021 5:41 PM Workstation Name: [email or web address]
== END 2021-01-30 09:52 | disposition home or self-care (01) ==
LOC: SPVWC 09:51
PROVIDERS: ATTEND Internal Medicine
DX: Z12.31 Encounter for screening mammogram for malignant neoplasm of breast (principal)
CPT/HCPCS: 77067